=== PATIENT | female | born 1955 | race Asian ===

== ENCOUNTER → 2017-08-27 | Outpatient (CLI) | payer BC ==
--- NOTE | 2017-08-27 13:21 | DIAGNOSTIC IMAGING REPORT ---
(BARIUM SWALLOW) ESOPHAGUS CLINICAL HISTORY: R13.10 Dysphagia Afternoons 3pm or later [id number] COMPARISON STUDY: None. FLUOROSCOPY TIME: 1.1 minute. 28 images submitted. FINDINGS: The patient swallowed barium without difficulty. The esophagus is normal in course, caliber, and motility. The contours of the hypopharynx are within normal limits. No hiatus hernia. No gastroesophageal reflux. IMPRESSION: Normal barium swallow. Electronically signed by: Randy Juares M.D. 08/27/2017 1:20 PM Dictated Date/Time: 08/27/2017 1:19 PM
== END | disposition home or self-care (01) ==
LOC: C.RAD 12:11
PROVIDERS: ATTEND Family Medicine
DX: R13.10 Dysphagia, unspecified (principal)

== ENCOUNTER → 2017-08-27 | Outpatient (CLI) | payer BC ==
--- NOTE | 2017-08-30 13:34 | MAMMOGRAPHY REPORT ---
BILATERAL DIGITAL SCREENING MAMMOGRAM TOMOSYNTHESIS WITH CAD: 08/27/2017 CLINICAL HISTORY: Routine screening. TECHNIQUE: Breast tomosynthesis in addition to standard 2D mammography was performed. Current study was also evaluated with a Computer Aided Detection (CAD) system. COMPARISON: Comparison is made to exams dated: 08/24/2016 mammogram - [facility], 08/19/2015 mammogram, 07/23/2014 mammogram, 06/14/2013 mammogram, 06/13/2012 mammogram, and 06/10/2011 mamm ogram. BREAST COMPOSITION: There are scattered areas of fibroglandular density in both breasts. FINDINGS: No suspicious masses, calcifications, or areas of architectural distortion are noted in ei ther breast. There has been no significant interval change compared to prior exams. A linear scar ma rker denotes a scar on the left anterior breast. Small nodular 6 mm asymmetry within the left superi or anterior breast is stable dating back to at least the 2009 exam. IMPRESSION: ACR BI-RADS CATEGORY 2: BENIGN There is no mammographic evidence of malignancy. A 1 year screening mammogram is recommended. The pa tient will receive written notification of the results. Approximately 10% of breast cancers are not detected with mammography. A negative mammographic report should not delay biopsy if a clinically suggestive mass is present. Lissy Nettles M.D. /:08/27/2017 16:38:43 Burial Vault Maker: Krysten MCCARTY)([place]), [facility] letter sent: Normal 1/2 BI-RADS Code: ACR BI-RADS Category 2: Benign
== END | disposition home or self-care (01) ==
LOC: C.MAMM 16:06
PROVIDERS: ATTEND Family Medicine
DX: Z12.31 Encounter for screening mammogram for malignant neoplasm of breast (principal)

== ENCOUNTER → 2017-12-14 | Day surgery (SDC) | payer BC, OTHER ==
[2017-11-23 11:19] VITALS: BMI 25.0
[~2017-12-14] VITALS: Ht 154.9 cm; Wt 61.4 kg
[~2017-12-14] MED LIST: BIOT1CAP8 PO; FENTANYL CITRATE INJ 50 MCG/1 ML 2 ML VIAL ONE; LIDOCAINE HCL 2% 2 ML VIAL (20MG/ML) ONE; MELO7.5T5 PO; MULT-506 PO; OMEP40CA41 PO; PROPOFOL IV EMULSION 10 MG/ML 20 ML VIAL IV ONE; PSYL48.59 PO; VITAMIN B12 PO; VITAMIN C PO; VITAMIN D PO; VITAMIN E PO
[2017-12-14 08:31] VITALS: Ht 154.9 cm; Wt 61.4 kg
--- NOTE | 2017-12-14 08:46 | Endo History and Physical ---
History & Physical Date of Service: Dec 14, 2017. Chief Complaint: DYSPHAGIA Referring Physician: DR. LOPEZ History of Present Illness 62 yo female who presents for EGD secondary to dysphagia. Past Surgical History Hx Cardiac Surgery: No Hx Internal Defibrillator: No Hx Pacemaker: No Hx Abdominal Surgery: No Hx of Implantable Prosthesis: No Hx Post-Op Nausea and Vomiting: Yes Hx Cancer Surgery: No Hx Thoracic Surgery: No Hx Orthopedic: No Hx Urinary Tract Surgery: No Family History None Social History Smoking Status: Never Smoker Hx Substance Use: No Hx Alcohol Use: No Allergies Coded Allergies: Sulfamethoxazole w/Trimethoprim (Verified Allergy, Unknown, ANAPHYLAXIS, ) Current Medications Reported Home Medications Medications Dose Route/Sig Max Daily Dose Days Date Category Multivitamin (Multivitamins) Tab 1 Tab PO DAILY 11/23/17 Reported [Vitamin C] 1 Cap PO QPM 11/23/17 Reported Biotin 1 Mg Cap 1 Cap PO QPM 11/23/17 Reported Metamucil (Psyllium) 48.57 % Pow 1 Dose PO HS 11/23/17 Reported [Vitamin E] 1 Tab PO QPM 11/23/17 Reported [Vitamin D] 1 Tab PO QPM 11/23/17 Reported [Vitamin B12] 1 Tab PO QPM 11/23/17 Reported Mobic (Meloxicam) 7.5 Mg Tab 7.5 Mg PO HS 11/23/17 Reported Prilosec (Omeprazole) 40 Mg Cap 40 Mg PO QAM 11/23/17 Reported Vital Signs Weight (Kilograms): 61.36 Height (Feet): 5 Height (Inches): 1 Date Time Temp Pulse Resp B/P (MAP) Pulse Ox O2 Delivery O2 Flow Rate FiO2 12/14/17 08:39 36.5 63 16 129/90 (103) 96 Room Air Physical Exam General Appearance: WD/WN, no apparent distress Respiratory/Chest: Auscultation: breath sounds normal Cardiovascular: Heart Auscultation: RRR Abdomen: Bowel Sounds: normal Inspection & Palpation: soft, non-distended, no tenderness, guarding & rebound Assessment and Plan Assessment: 62 yo female who presents for EGD secondary to dysphagia. Plan: Proceed with EGD.
--- NOTE | 2017-12-14 09:19 | GI REPORT ---
Procedure Date: 12/14/2017 9:10 AM Procedure: Upper GI endoscopy Indications: Dysphagia Medicines: Monitored Anesthesia Care Complications: No immediate complications. Estimated Blood Loss: Estimated blood loss: none. Procedure: Pre-Anesthesia Assessment: - Prior to the procedure, a History and Physical was performed, and patient medications and allergies were reviewed. The patient's tolerance of previous anesthesia was also reviewed. The risks and benefits of the procedure and the sedation options and risks were discussed with the patient. All questions were answered, and informed consent was obtained. Prior Anticoagulants: The patient has taken no previous anticoagulant or antiplatelet agents. ASA Grade Assessment: II - A patient with mild systemic disease. After reviewing the risks and benefits, the patient was deemed in satisfactory condition to undergo the procedure. After obtaining informed consent, the endoscope was passed under direct vision. Throughout the procedure, the patient's blood pressure, pulse, and oxygen saturations were monitored continuously. The scope was introduced through the mouth, and advanced to the second part of duodenum. The upper GI endoscopy was accomplished without difficulty. The patient tolerated the procedure well. Findings: The esophagus was normal. The entire examined stomach was normal. Biopsies were taken with a cold forceps for Helicobacter pylori testing. The examined duodenum was normal. Impression: - Normal esophagus. - Normal stomach. Biopsied. - Normal examined duodenum. Recommendation: - Resume previous diet. - Continue present medications. - Await pathology results. - Perform a barium swallow using barium in liquid and tablet form at appointment to be scheduled. - Return to primary care physician as previously scheduled. Ernesto Mcdonald DO 12/14/2017 9:19:03 AM This report has been signed electronically. Note Initiated On: 12/14/2017 9:10 AM I attest to the content of the Intraoperative Record and orders documented therein, exceptions below
--- NOTE | 2017-12-14 09:20 | Discharge Instructions ---
Endoscopy Patient Instructions Date / Procedure(s) Performed Dec 14, 2017. EGD Allergy Information Coded Allergies: Sulfamethoxazole w/Trimethoprim (Verified Allergy, Unknown, ANAPHYLAXIS, ) Discharge Date / Findings Dec 14, 2017. Gastric antrum biopsies Medication Instructions OK to resume all medications today as prescribed Reported Home Medications Medications Dose Route/Sig Max Daily Dose Days Date Category Multivitamin (Multivitamins) Tab 1 Tab PO DAILY 11/23/17 Reported [Vitamin C] 1 Cap PO QPM 11/23/17 Reported Biotin 1 Mg Cap 1 Cap PO QPM 11/23/17 Reported Metamucil (Psyllium) 48.57 % Pow 1 Dose PO HS 11/23/17 Reported [Vitamin E] 1 Tab PO QPM 11/23/17 Reported [Vitamin D] 1 Tab PO QPM 11/23/17 Reported [Vitamin B12] 1 Tab PO QPM 11/23/17 Reported Mobic (Meloxicam) 7.5 Mg Tab 7.5 Mg PO HS 11/23/17 Reported Prilosec (Omeprazole) 40 Mg Cap 40 Mg PO QAM 11/23/17 Reported Provider Instructions Activity Restrictions - No exercising or heavy lifting for 24 hours. - Do not drink alcohol the day of the procedure. - Do not drive a car or operate machinery until the day after the procedure. - Do not make any important decisions or sign important papers in 24 hours after the procedure. Following Day: - Return to full activity which may include returning to work/school. Diet Start your diet with liquids and light foods (jello, soup, juice, toast). Then eat your usual diet if not nauseated. Treatment For Common After Affects For mild abdominal pain, bloating, or excessive gas: - Rest - Eat lightly - Lie on right side Recommend Barium swallow for further evaluation of patient's dysphagia. Follow-Up Information Follow-up with DR. LOPEZ as scheduled Anesthesia Information What You Should Know You have had a procedure that required some medicine to reduce anxiety and discomfort. This treatment is called moderate sedation. After receiving the treatment, you may be sleepy, but you will be able to breathe on your own. The effects of the treatment may last for several hours. Follow these instructions along with Activity/Diet recommendations noted above: * Do NOT do anything where dizziness or clumsiness would be dangerous. * Rest quietly at home today, then you can be up and about tomorrow. * Have a responsible person stay with you the rest of today. * You may have had an I.V. today. If so, you may take the dressing off later today. Recommendations Call your doctor if: * Trouble breathing * Continuous vomiting for more than 24 hours * Temperature above 101 degrees * Severe abdominal pain or bloating * Pain not relieved by pain medicine ordered * There is increased drainage or redness from any incision * A large amount of rectal bleeding greater than 2-3 tablespoons. (If you had a polyp/s removed or have hemorrhoids, a small amount of blood - from the rectum is to be expected.) * You have any unanswered questions or concerns. IN THE EVENT OF A SERIOUS EMERGENCY, GO TO THE NEAREST EMERGENCY ROOM Your discharge instructions were prepared by provider Ernesto Mcdonald. Patient Instructions Signature Page Pia Gordillo Patient (or Guardian) Signature/Date: I have read and understand the instructions given to me by my caregivers. Caregiver/RN/Doctor Signature/Date: The above-named patient and/or guardian has received patient instructions on this date. + Original Patient Signature Page (only) stays with chart. Please make copy for patient.
[2017-12-14 09:51] VITALS: BP 145/79; PULSE 60; O2SAT 100
--- NOTE | 2017-12-14 10:23 | Anesthesiology Progress Note ---
Anesthesia Post Op Note Date & Time Dec 14, 2017 at 10:23 Vital Signs Pain Intensity: 10 Vital Signs Past 12 Hours Date Time Temp Pulse Resp B/P (MAP) Pulse Ox O2 Delivery O2 Flow Rate FiO2 12/14/17 09:51 60 20 145/79 (101) 100 Room Air 12/14/17 09:37 55 20 105/92 (96) 100 Room Air 12/14/17 09:20 67 16 96/65 (75) 96 Nasal Cannula 2 12/14/17 08:39 36.5 63 16 129/90 (103) 96 Room Air Notes Mental Status: alert / awake / arousable, participated in evaluation Pt Amnestic to Procedure: Yes Nausea / Vomiting: adequately controlled Pain: adequately controlled Airway Patency, RR, SpO2: stable & adequate BP & HR: stable & adequate Hydration State: stable & adequate Anesthetic Complications: no major complications apparent
== END | disposition home or self-care (01) ==
LOC: C.GI 08:10
PROVIDERS: ATTEND Internal Medicine
DX: R13.10 Dysphagia, unspecified (principal); K21.9 Gastro-esophageal reflux disease without esophagitis; M19.90 Unspecified osteoarthritis, unspecified site; F41.9 Anxiety disorder, unspecified